=== PATIENT | female | born 1940 | race African-American/Black ===

== ENCOUNTER 2024-08-22 09:42 | Emergency (ER) | payer MEDICARE, OTHER ==
[~2024-08-22] VITALS: Ht 167.6 cm; Wt 91.0 kg
[2024-08-22 10:26] VITALS: O2SAT 96
[2024-08-22] MEDS: KETOROLAC 30MG/ML VIAL IM ONE (11:38)
[2024-08-22] MEDS: METHOCARBAMOL 500MG TABLET PO ONE (11:39)
[2024-08-22] MEDS ORDERED: CYCL10TA21 MT (12:02)
[2024-08-22] MEDS ORDERED: LIDO700A30 TP (12:02)
[2024-08-22] MEDS ORDERED: IBUP-2029 MT (12:02)
[2024-08-22 12:11] VITALS: BP 130/60; PULSE 77; RESP 16; TEMP 36.7; O2SAT 96
== END 2024-08-22 12:15 | disposition home or self-care (01) ==
LOC: ER 09:42
DX: S43.402A Unspecified sprain of left shoulder joint, initial encounter (principal); M17.11 Unilateral primary osteoarthritis, right knee; I10 Essential (primary) hypertension; E11.9 Type 2 diabetes mellitus without complications; F41.9 Anxiety disorder, unspecified; Z86.59 Personal history of other mental and behavioral disorders; W18.30XA Fall on same level, unspecified, initial encounter; Y93.89 Activity, other specified; Y92.89 Other specified places as the place of occurrence of the external cause; Y99.8 Other external cause status
CPT/HCPCS: 99284; 72100; 73030; 73562; 96372; J1885